=== PATIENT | male | born 1955 | race Two or more races ===

== ENCOUNTER 2018-12-21 08:15 | Inpatient (IN) | payer OTHER ==
[~2018-12-21] VITALS: Ht 175.3 cm; Wt 85.7 kg
== END 2019-01-01 17:40 | disposition home or self-care (01) | DRG 330 ==
LOC: O/R 12-27 06:35 → SURH 12-27 06:35
PROVIDERS: ADMIT Colon & Rectal Surgery
PROC: 0DQP4ZZ Repair Rectum, Percutaneous Endoscopic Approach (ICD-10-PCS; principal; 2018-12-27 08:15)
DX: Z43.2 Encounter for attention to ileostomy (principal); C20 Malignant neoplasm of rectum; K66.0 Peritoneal adhesions (postprocedural) (postinfection); Z85.048 Personal history of other malignant neoplasm of rectum, rectosigmoid junction, and anus

== ENCOUNTER 2019-06-15 07:41 | Day surgery (SDC) | payer OTHER | END 2019-06-15 15:55 | disposition home or self-care (01) | LOC: AMB-ENDOS 07:41 | DX: C20 Malignant neoplasm of rectum (principal) ==

== ENCOUNTER 2020-07-25 06:40 | Day surgery (SDC) | payer OTHER | END 2020-07-25 12:00 | disposition home or self-care (01) | LOC: AMB-ENDOS 06:40 | PROVIDERS: ATTEND Colon & Rectal Surgery | DX: K62.89 Other specified diseases of anus and rectum (principal) ==